=== PATIENT | male | born 2000 | race Two or more races ===

== ENCOUNTER 2022-09-04 11:45 | Inpatient (IN) | payer OTHER ==
[~2022-09-04] VITALS: Ht 182.9 cm; Wt 81.8 kg
--- NOTE | 2022-09-04 12:27 | NUR ---
PTE RIFERE QUE TIENE DIARREAS DESDE KAREY Y QUE HOY COMENZO CON [place] [facility]
--- NOTE | 2022-09-04 14:57 | NUR ---
EVALUADO PTE. POR DRA. HECK. SE ORIENTA SOBRE TRATAMIENTO Y MEDICAMENTOS LOS CUALES SE ADM. ANDRES ORDEN MEDICA,MUESTRAS TOMADAS Y SE ENVIAN AL LABORATORIO. SE TANIYA PTE. EN JOSY CON BARRANDAS ELEVADAS ACOMPANADO DE FAMILIAR.
== END 2022-09-12 11:19 | disposition home or self-care (01) | DRG 372 ==
LOC: EMR PED 11:45 → ER 11:48 → EMR PED 11:48 → PED 17:15
PROVIDERS: ADMIT Emergency Medicine; ATTEND Emergency Medicine
DX: A02.0 Salmonella enteritis (principal); K92.1 Melena; E86.0 Dehydration; E87.6 Hypokalemia